=== PATIENT | male | born 1970 | race Caucasian/White ===

== ENCOUNTER 2019-07-30 07:47 | Outpatient (CLI) | payer BC ==
--- NOTE | 2019-07-30 10:44 | CT ---
CT ABDOMEN AND PELVIS WITH ORAL AND IV CONTRAST: HISTORY: Abdominal pain and diverticulitis. COMPARISON: None. FINDINGS: The lung bases are clear. No calcified gallstones are seen. The liver, spleen, pancreas, adrenal glan ds and kidneys appear normal. No free air, free fluid or lymphadenopathy is seen in the abdomen or pelvis. The small bowel loops ar e not abnormally dilated. A normal appearing appendix is present. No pericolonic inflammatory changes are seen. There is a fat containing hernia in the left anterior abdominal wall with the opening of h er hernial sac measuring 2 cm in transverse dimension and 4.3 cm in CC dimension. There is no evidenc e of aneurysmal dilatation of the abdominal aorta. There are degenerative changes in the spine. IMPRESSION: 1. No acute process. 2. Fat-containing left sided anterior abdominal wall hernia. POS: [facility]
[2019-07-30] MEDS ORDERED: Iopamidol-370 76% 500 ML 1 ML ONE (10:57)
== END 2019-07-30 07:48 | disposition home or self-care (01) ==
LOC: BICCT 07:47
PROVIDERS: ATTEND Internal Medicine Gastroenterology
DX: K57.30 Diverticulosis of large intestine without perforation or abscess without bleeding (principal); R19.7 Diarrhea, unspecified; K43.9 Ventral hernia without obstruction or gangrene
CPT/HCPCS: 74177; Q9967

== ENCOUNTER 2019-08-06 14:46 | Outpatient (CLI) | payer BC ==
[2019-08-06 15:42] LABS: #Basophils 0.1 thou/uL (0.0-0.2); #Eosinphils 0.2 thou/uL (0.0-0.7); #Lymphocytes 1.5 thou/uL (1.20-3.40); #Monocytes 0.6 thou/uL (0.11-0.59); #Neutrophils 5.7 thou/uL (1.40-6.50); %Basophils 0.8 % (0.0-1.0); %Eosinophils 2.2 % (0.0-10.0); %Lymphocytes 18.4 % (21.0-51.0); %Monocytes 7.1 % (0.0-10.0); %Neutrophils 71.6 % (42.0-75.0); Hemoglobin 15.5 g/dL (14.0-18.0); Mean Corpuscular HGB CONC 34.2 g/dL (32.0-36.0); Mean Corpuscular Hemoglobin 30.3 pg (27.0-31.0); Mean Corpuscular Volume 88.4 fL (78.0-98.0); Mean Platelet Volume 8.4 fL (7.4-10.4); Platelet Count 201 thou/uL (130-400); RBC Distribution Width 11.3 % (11.5-14.5); Red Blood Cell (RBC) Count 5.12 mill/uL (4.70-6.10); White Blood Cell (WBC) Count 7.9 thou/uL (4.8-10.8)
[2019-08-06 16:08] LABS: Anion Gap 14 mmol/L (10-20); BUN (Urea Nitrogen) 19 mg/dL (8.9-20.6); Calc. Creatinine Clearance 0 mL/min (70-130); Calcium 9.8 mg/dL (7.8-10.44); Carbon Dioxide 26 mmol/L (22-29); Chloride 106 mmol/L (98-107); Estimated GFR-MDRD 68; Glucose 87 mg/dL (70-105); Potassium 4.5 mmol/L (3.5-5.1); Sodium 141 mmol/L (136-145)
== END 2019-08-06 14:47 | disposition home or self-care (01) ==
LOC: LABBT 14:46
PROVIDERS: ATTEND Surgery
DX: Z01.818 Encounter for other preprocedural examination (principal); K43.2 Incisional hernia without obstruction or gangrene
CPT/HCPCS: 80048; 85025; 93005; 93010

== ENCOUNTER 2019-08-08 07:48 | Outpatient (CLI) | payer BC ==
--- NOTE | 2019-08-08 08:59 | MRI ---
MR OF THE RIGHT KNEE WITHOUT CONTRAST INDICATION: Right knee pain and history of injury 7 months ago where he heard a pop with continued pa in and swelling. History of prior ACL repair in the TECHNIQUE: Axial and coronal PD fat sat, sagittal T2 fat sat, sagittal PD turbo spin echo and T1 viri nal images were obtained of the right knee. COMPARISON: None. FINDINGS: Joint effusion: Mild joint effusion Semimembranosus-medial gastrocnemius popliteal cyst: None. Ligaments: The ACL has been reconstructed. The ACL graft is intact. The PCL and MCL and LCLC are inta ct. Extensor mechanism: There is postsurgical change of prior mid one third patellar tendon harvest. The extensor mechanism is intact. Menisci: There is a horizontally oriented tear involving the body and posterior horn of the medial me niscus. There is a radial component involving the posterior junction of the medial meniscus with partial medial extrusion. The lateral meniscus is intact. Articular cartilage: There is moderate to severe diffuse articular cartilage thinning involving the m edial femoral tibial joint compartment. There is mild diffuse articular cartilage thinning involving the lateral femoral tibial compartment. Mild chondrosis is seen involving the patellofemora l compartment. There are small marginal osteophytes affecting the major compartments of the left knee. Osseous structures: Susceptibility artifact from interference screws within the proximal tibia and di stal femur are present from prior ACL reconstruction. Otherwise there is some mild reactive edema involving the medial femoral tibial joint compartment subchondral bone. Popliteus and IT band: Normal. IMPRESSION: 1. Postsurgical change of prior ACL reconstruction with an intact ACL graft. 2. Medial meniscal tear. 3. Mild osteoarthrosis of the right knee.
== END 2019-08-08 07:49 | disposition home or self-care (01) ==
LOC: SCSMRI 07:48
PROVIDERS: ATTEND Orthopaedic Surgery
DX: M25.561 Pain in right knee (principal); S83.241A Other tear of medial meniscus, current injury, right knee, initial encounter; M17.11 Unilateral primary osteoarthritis, right knee; Z98.890 Other specified postprocedural states

== ENCOUNTER 2019-08-08 11:45 | Day surgery (SDC) | payer BC ==
[2019-08-06 14:51] VITALS: BMI 33.3
[~2019-08-08 11:45] MED LIST: Dexamethasone 20 MG/5 ML VIAL ONE; Glycopyrrolate 0.2 MG/ML 5 ML SYRINGE ONE; Ketorolac Tromethamine 30 MG/ML VIAL ONE; Lidocaine 1% PF 5 ML VIAL ONE; Ondansetron PF 4 MG/2 ML Vial ONE; PHENYLEPHRINE-NS 100 MCG/ML 10 ML SYRINGE ONE; PROPOFOL 200 MG/20 ML VIAL ONE
[2019-08-08] MEDS ORDERED: Fentanyl 100 MCG/2 ML VIAL ONE ×5 (12:29→17:48)
[2019-08-08] MEDS ORDERED: Lidocaine 1% w/Epinephrine 1:100K 20 ML VIAL ONE (12:35)
[2019-08-08] MEDS ORDERED: Bupivacaine 0.25% HCL 30 ML VIAL ONE (12:35)
[2019-08-08] MEDS ORDERED: Midazolam HCl 2 mg/2 ml Vial ONE (12:47)
[2019-08-08] MEDS ORDERED: HYDROcodone/Acetaminophen 5/325 mg Tablet ONE (16:24)
[2019-08-08] MEDS ORDERED: Ketorolac Tromethamine 30 MG/ML VIAL ONE (17:48)
--- NOTE | 2019-08-08 21:31 | OP ---
DATE OF PROCEDURE: 08/08/2019 PREOPERATIVE DIAGNOSIS: Incisional hernia. POSTOPERATIVE DIAGNOSIS: Incisional hernia. PROCEDURE PERFORMED: Da Margarito laparoscopic incisional hernia repair with mesh, Ventralex ST. ANESTHESIA: General. ESTIMATED BLOOD LOSS: Minimal. COMPLICATIONS: None. FINDINGS: Colostomy site hernia. DESCRIPTION OF PROCEDURE: The patient was taken to the operating room and laid supine on table. After general anesthetic was obtained, a Alvarado catheter was placed. The abdomen was shaved, prepped, and draped in a sterile fashion. Left subcostal 5 mm Optiview trocar was placed in usual fashion and high-flow pneumoperitoneum was obtained. A right upper quadrant 11 mm balloon trocar as well as a right lower quadrant 8 mm assist trocar placed under direct visualization. The 5 mm left subcostal switched out to an 8 robot assist. The robot was brought in from the left side of the patient and all ports were docked to the robot. Surgeon goes to the console. There were some omental adhesions to the area of hernia at the former colostomy site in the left lower quadrant. These were all taken down. There was some omental fat up in the hernia stuck to the hernia sac. This was all taken down. The hernia sac was reflected off exposing the posterior fascia. The patient's fascial defect was closed using a running #1 V-Loc suture. This completely closed the defect. Ventralex ST mesh was cut to 8 x 11 cm and placed in the abdomen. The exposed mesh side was placed up against the posterior fascia, the nonadherent barriers left down against the abdominal viscera. This was sewn to the posterior fascia using a running 2-0 V-Loc circumferentially around the edges of the mesh. There was complete coverage of the defect with good overlap. All needles were removed from the abdomen and accounted for. All port sites were infiltrated using local anesthetic. All ports were removed under camera visualization. Pneumoperitoneum was let down. 4-0 Monocryl and Dermabond were used to close all skin incisions. The patient was sent to Recovery in stable condition. All instrument counts, needle counts, and lap counts were correct. Job ID: [id number]
== END 2019-08-08 19:15 | disposition home or self-care (01) ==
LOC: SDC 11:45
PROVIDERS: ATTEND Surgery
PROC: 0WUF4JZ Supplement Abdominal Wall with Synthetic Substitute, Percutaneous Endoscopic Approach (ICD-10-PCS; principal; 2019-08-08)
DX: K43.2 Incisional hernia without obstruction or gangrene (principal); I10 Essential (primary) hypertension; Z79.899 Other long term (current) drug therapy; Z91.018 Allergy to other foods
CPT/HCPCS: C1781; J0131; J0690; J1100; J1885; J2001; J2250; J2405; J2704; J3010; S0020

== ENCOUNTER 2019-08-29 11:16 | Day surgery (SDC) | payer BC ==
[2019-08-28 11:43] VITALS: BMI 33.5
[2019-08-29 11:48] LABS: #Basophils 0.1 thou/uL (0.0-0.2); #Eosinphils 0.3 thou/uL (0.0-0.7); #Lymphocytes 1.2 thou/uL (1.20-3.40); #Monocytes 0.4 thou/uL (0.11-0.59); #Neutrophils 4.1 thou/uL (1.40-6.50); %Basophils 1.2 % (0.0-1.0); %Eosinophils 4.4 % (0.0-10.0); %Lymphocytes 20.3 % (21.0-51.0); %Monocytes 6.6 % (0.0-10.0); %Neutrophils 67.6 % (42.0-75.0); Hemoglobin 14.5 g/dL (14.0-18.0); Mean Corpuscular HGB CONC 33.6 g/dL (32.0-36.0); Mean Corpuscular Hemoglobin 29.1 pg (27.0-31.0); Mean Corpuscular Volume 86.8 fL (78.0-98.0); Mean Platelet Volume 8.1 fL (7.4-10.4); Platelet Count 238 thou/uL (130-400); Red Blood Cell (RBC) Count 4.98 mill/uL (4.70-6.10); White Blood Cell (WBC) Count 6.1 thou/uL (4.8-10.8)
[2019-08-29] MEDS ORDERED: PROPOFOL 20 ML ONE (11:54)
[2019-08-29 12:20] LABS: Anion Gap 11 mmol/L (10-20); BUN (Urea Nitrogen) 18 mg/dL (8.9-20.6); Calc. Creatinine Clearance 124 mL/min (70-130); Calcium 9.6 mg/dL (7.8-10.44); Carbon Dioxide 27 mmol/L (22-29); Chloride 106 mmol/L (98-107); Estimated GFR-MDRD 75; Glucose 89 mg/dL (70-105); Potassium 4.2 mmol/L (3.5-5.1); Sodium 140 mmol/L (136-145)
[2019-08-29] MEDS ORDERED: Lidocaine 1% PF 5 ML VIAL ONE (14:01)
[2019-08-29] MEDS ORDERED: Lidocaine 2% w/Epinephrine 1:200K 20 ML VIAL ONE (14:01)
[2019-08-29] MEDS ORDERED: Ondansetron PF 4 MG/2 ML Vial ONE (14:01)
[2019-08-29] MEDS ORDERED: Bupivacaine HCl 0.5%/Epinephrine 1:200,000/PF 30 ml Vial ONE (14:01)
[2019-08-29] MEDS ORDERED: PROPOFOL 200 MG/20 ML VIAL ONE (14:02)
--- NOTE | 2019-08-29 18:18 | OP ---
DATE OF PROCEDURE: 08/29/2019 PREOPERATIVE DIAGNOSIS: Right knee medial meniscus tear. POSTOPERATIVE DIAGNOSES: 1. Right knee medial meniscus tear. 2. 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 PROCEDURES PERFORMED: 1. Right knee arthroscopy with partial medial meniscectomy. 2. Debridement and shaving of all unstable cartilage flaps throughout the knee. SINGING TELEGRAM PERFORMER: None. BLOOD LOSS: Minimal. COMPLICATIONS: None. ANESTHESIA: He did have a general anesthetic as well as a local knee block. DISPOSITION: He went to recovery room in stable condition. INDICATIONS: This is a 49-year-old who has been having a lot of symptoms with catching and locking of the knee associated with swelling. On an MRI, he was found to have a large flap tear and at this time opted to have surgery. DESCRIPTION OF PROCEDURE: After all appropriate consent forms were explained and signed, he was taken back to the operative room and at this time was given general anesthetic. Once the level of anesthesia was appropriate, tourniquet was placed on the right thigh and the leg was placed in arthroscopic leg nichols. The limb was then prepped and draped in standard surgical fashion. Limb was exsanguinated, and the tourniquet was taken to 300 mmHg. Inferolateral portal was established. Scope was placed into the knee joint. A needle localization technique was then used to make a medial working portal. Diagnostic arthroscopy commenced in the notch. The ACL graft that he had placed previously was intact. PCL was intact. The medial compartment showed a large flap tear off the body of the medial meniscus that it flipped into the joint. This was taken down with a meniscal biter and shaver back to a stable base. Unfortunately, he previously had a significant amount of his medial meniscus removed, so there was significant missing meniscus as well. There was also noted an area of grade 4 chondromalacia on the medial femoral condyle as well as a large area of surrounding grade 3 and 2 changes. Any unstable cartilage flaps were removed. The lateral compartment was evaluated and overall was found to be in good condition. There were some grade 2 changes on the lateral tibial plateau, but overall the finger looked to be good as well as the meniscus. Patellofemoral joint showed the trochlear to have some significant grade 3 and 4 changes with some large unstable chondral flaps. These were taken down and we put the shaver back to a stable base. The patella itself was in good condition. The gutters were swept through. There were angry and had some synovitis. The medial gutter had no loose bodies noted. The lateral gutter had some small cartilaginous loose bodies, which were removed with a suction shaver device. At this time, we went through the knee one more time making sure there were no more remaining loose pieces to remove and we were satisfied that there were no more pieces. The scope was removed. The knee was drained, and the portals were closed with simple nylon stitch. Bulky sterile dressing was applied, and the tourniquet was let down. Toes pinked up nicely. The patient was awakened. He was taken to recovery room in stable condition. All counts were correct at the end of the case. He did receive preoperative IV antibiotics. Job ID: [id number]
== END 2019-08-29 16:22 | disposition home or self-care (01) ==
LOC: SDC 11:16
PROVIDERS: ATTEND Orthopaedic Surgery
PROC: 0SBC4ZZ Excision of Right Knee Joint, Percutaneous Endoscopic Approach (ICD-10-PCS; principal; 2019-08-29)
DX: S83.241A Other tear of medial meniscus, current injury, right knee, initial encounter (principal); M94.261 Chondromalacia, right knee; I10 Essential (primary) hypertension; M17.11 Unilateral primary osteoarthritis, right knee; G56.00 Carpal tunnel syndrome, unspecified upper limb; M25.511 Pain in right shoulder; Z79.899 Other long term (current) drug therapy; Z91.018 Allergy to other foods
CPT/HCPCS: 36415; 80048; 85025; J0670; J0690; J2001; J2405; J2704

== ENCOUNTER 2022-02-18 19:12 | Emergency (ER) | payer BC, OTHER ==
[2022-02-18 20:16] LABS: #Basophils 0.1 thou/uL (0.0-0.2); #Eosinphils 0.3 thou/uL (0.0-0.7); #Lymphocytes 1.6 thou/uL (1.20-3.40); #Monocytes 0.5 thou/uL (0.11-0.59); #Neutrophils 4.7 thou/uL (1.40-6.50); %Basophils 0.9 % (0.0-1.0); %Eosinophils 3.7 % (0.0-10.0); %Lymphocytes 22.3 % (21.0-51.0); %Monocytes 7.3 % (0.0-10.0); %Neutrophils 65.8 % (42.0-75.0); Mean Corpuscular HGB CONC 32.9 g/dL (32.0-36.0); Mean Corpuscular Hemoglobin 30.4 pg (27.0-31.0); Mean Corpuscular Volume 92.4 fL (78.0-98.0); Mean Platelet Volume 8.6 fL (7.4-10.4); Platelet Count 181 thou/uL (130-400); RBC Distribution Width 11.9 % (11.5-14.5); Red Blood Cell (RBC) Count 4.94 mill/uL (4.70-6.10); White Blood Cell (WBC) Count 7.1 thou/uL (4.8-10.8)
[2022-02-18 20:34] LABS: ALT (SGPT) 20 U/L (8-55); AST (SGOT) 19 U/L (5-34); Albumin 4.6 g/dL (3.5-5.0); Alkaline Phosphatase 60 U/L (40-110); Anion Gap 17 mmol/L (10-20); BUN (Urea Nitrogen) 22 mg/dL (8.4-25.7); Bilirubin, Total 1.5 mg/dL (0.2-1.2); Calc. Creatinine Clearance 0 mL/min (70-130); Calcium 9.3 mg/dL (7.8-10.44); Carbon Dioxide 23 mmol/L (22-29); Chloride 104 mmol/L (98-107); Estimated GFR 62; Globulin 2.4 g/dL (2.4-3.5); Glucose 120 mg/dL (70-105); Potassium 3.2 mmol/L (3.5-5.1); Sodium 141 mmol/L (136-145)
== END 2022-02-18 21:59 | disposition home or self-care (01) ==
LOC: ERS 19:12
DX: R55 Syncope and collapse (principal); R94.4 Abnormal results of kidney function studies; I10 Essential (primary) hypertension; Z79.82 Long term (current) use of aspirin; Z79.899 Other long term (current) drug therapy
CPT/HCPCS: 36415; 80053; 84484; 85025; 93005